=== PATIENT | female | born 1960 | race Caucasian/White ===

== ENCOUNTER 2019-05-20 12:00 | Outpatient (CLI) | payer OTHER, SELFPAY | END 2019-05-20 12:01 | disposition home or self-care (01) | LOC: SLEEP 05-24 11:02 | PROVIDERS: Family Provider Internal Medicine; PCP Internal Medicine; Visit Provider Internal Medicine | DX: G47.33 Obstructive sleep apnea (adult) (pediatric) (principal) | CPT/HCPCS: G0399 ==

== ENCOUNTER 2019-08-26 07:43 | Outpatient (CLI) | payer OTHER, SELFPAY ==
[2019-08-26 09:07] VITALS: BP 167/69; PULSE 62; RESP 18; TEMP 36.3; O2SAT 96; BMI 43.8
[2019-08-26] MEDS: ferric carboxy (IVPB) 750 MG in sodium chloride 0.9% (100 ml) 100 ML 345 MG IV (09:20)
== END 2019-08-26 07:44 | disposition home or self-care (01) ==
LOC: GILAB 07:46
PROVIDERS: Family Provider Internal Medicine; PCP Internal Medicine; Visit Provider Internal Medicine
DX: D50.9 Iron deficiency anemia, unspecified (principal)
CPT/HCPCS: 96365; J1439

== ENCOUNTER 2019-09-02 07:36 | Outpatient (CLI) | payer OTHER, SELFPAY ==
[2019-09-02 07:55] VITALS: BP 128/91; PULSE 90; RESP 20; TEMP 36.3; O2SAT 98
[2019-09-02 08:09] VITALS: BMI 45.1
[2019-09-02] MEDS: ferric carboxy (IVPB) 750 MG in sodium chloride 0.9% (100 ml) 100 ML 345 MG IV (08:21)
== END 2019-09-02 07:37 | disposition home or self-care (01) ==
LOC: GILAB 07:38
PROVIDERS: Family Provider Internal Medicine; PCP Internal Medicine; Visit Provider Internal Medicine
DX: D50.9 Iron deficiency anemia, unspecified (principal)
CPT/HCPCS: 96365; J1439

== ENCOUNTER → 2020-03-27 09:39 | Outpatient (BNVA) | payer OTHER, SELFPAY | PROVIDERS: Family Provider Internal Medicine; PCP Internal Medicine; Visit Provider Internal Medicine | DX: R76.8 Other specified abnormal immunological findings in serum (principal); M25.50 Pain in unspecified joint; Z79.899 Other long term (current) drug therapy; Z11.59 Encounter for screening for other viral diseases; M79.10 Myalgia, unspecified site; R53.83 Other fatigue; Z86.2 Personal history of diseases of the blood and blood-forming organs and certain disorders involving the immune mechanism | CPT/HCPCS: 36415; 99204 ==

== ENCOUNTER 2020-03-27 11:07 | Outpatient (CLI) | payer OTHER, SELFPAY ==
--- NOTE | 2020-03-27 11:17 | XR_ITS ---
WS: [id number] CERVICAL SPINE FLEXION EXTENSION TECHNIQUE: 3 views of the cervical spine: lateral neutral, flexion and extension views. CLINICAL INFORMATION: R76.8 - Other specified abnormal immunological findings in serum COMPARISON: None. FINDINGS: Straightening of the normal cervical lordosis. Normal C1-2 articulation. No instability on flexion-ex tension. Mild spondylitic changes. Surgical clips anterior neck soft tissues.. Posterior elements are normal. No other significant findings. XR/XR cervical spine fl/ex [id number] IMPRESSION: 1. Straightening of the normal cervical lordosis with mild spondylitic changes . 2. No instability on flexion extension.
--- NOTE | 2020-03-27 11:17 | XR_ITS ---
WS: [id number] LUMBAR SPINE TECHNIQUE: 3 views of the lumbar spine CLINICAL INFORMATION: M25.50 - Pain in unspecified joint COMPARISON: None. FINDINGS: Mild lumbar curve convex left. Cholecystectomy clips. Disc space heights vertebral body heights well- preserved. Moderate facet arthropathy L4-L5 and L5-S1. No other significant findings. XR/XR lumbar spine 2-3V* [id number] IMPRESSION: 1. Mild lumbar curve convex left. No acute appearing compression fractures. 2. Moderate facet arthropathy L4-L5 and L5-S1.
--- NOTE | 2020-03-27 11:17 | XR_ITS ---
WS: [id number] TECHNIQUE: 2 views of the right hand CLINICAL INFORMATION: R76.8 - Other specified abnormal immunological findings in serum COMPARISON: None. FINDINGS: Normal metacarpals. Normal MCP joint. Metacarpal heads are normal in appearance. Mild IP joint narrow ing.. No evidence of acute fracture or dislocation. Radiocarpal joint: Moderate narrowing Carpal bones: Normal. XR/XR hand RT 2V [id number] IMPRESSION: Mild IP and moderate radiocarpal joint narrowing. No significant erosive change s.
--- NOTE | 2020-03-27 11:17 | XR_ITS ---
WS: [id number] TECHNIQUE: 2 views of the left hand CLINICAL INFORMATION: R76.8 - Other specified abnormal immunological findings in serum COMPARISON: None. FINDINGS: Normal metacarpals. Normal MCP joint. Metacarpal heads are normal in appearance. Mild IP joint narrow ing. No evidence of acute fracture or dislocation. Radiocarpal joint: Moderate narrowing Carpal bones: Normal. XR/XR hand LT 2V [id number] IMPRESSION: 1. Moderate narrowing of the radiocarpal joint. 2. Mild IP joint narrowing. 3. No significant erosive changes.
== END 2020-03-27 11:08 | disposition home or self-care (01) ==
LOC: RADWPI 11:12
PROVIDERS: PCP Internal Medicine; Visit Provider Internal Medicine
DX: R76.8 Other specified abnormal immunological findings in serum (principal); M25.50 Pain in unspecified joint; M47.816 Spondylosis without myelopathy or radiculopathy, lumbar region; M47.817 Spondylosis without myelopathy or radiculopathy, lumbosacral region
CPT/HCPCS: 72040; 72100; 73120; 80053; 81001; 82306; 82530; 82550; 82607; 82728; 82784; 83516; 83540; 83735; 84100; 85025; 85651; 86140; 86704; 86803; 87340